=== PATIENT | female | born 1970 | race Caucasian/White ===

== ENCOUNTER 2025-02-04 16:22 | Observation (INO) ==
[2025-02-04 17:02] LABS: Hematocrit (blood only) 43.4 % (37.0-47.0); Hemoglobin 14.5 g/dl (12.0-16.0); Immature Granulocytes # (auto) 0.02 K/uL (0.01-0.20); Immature Granulocytes % (auto) 0.2 %; Mean Corpuscular Hemoglobin 28.1 pg (25.0-34.0); Mean Corpuscular Volume 84.1 fL (80.0-100.0); Platelet Count 292 K/uL (130-400); RDW Standard Deviation 38.9 fL (36.4-46.3); Red Blood Count 5.16 M/uL (4.20-5.40); White Blood Count 8.33 K/ul (4.8-10.8)
[2025-02-04 17:16] LABS: Alanine Aminotransferase 16 U/L (7-52); Albumin Globulin Ratio 1.1 (0.9-2); Albumin Level 4.0 gm/dl (3.4-5.0); Alkaline Phosphatase 99 U/L (34-104); Anion Gap 9 (3-11); Bilirubin,Total 1.2 mg/dl (0.2-1.0); Blood Urea Nitrogen 12 mg/dl (6-23); Calcium 9.6 mg/dl (8.6-10.3); Carbon Dioxide 28 mmol/L (21-32); Chloride 98 mmol/L (98-107); Globulin 3.6 gm/dl (2.5-4.0); Glucose 172 mg/dl (70-99(Fasting)); Potassium 4.0 mmol/L (3.5-5.1); Sodium 135 mmol/L (136-145); Total Protein 7.6 gm/dl (6.0-8.3)
--- NOTE | 2025-02-04 17:18 | XRay Report ---
Clinical History: Chest pain Technique: A frontal view of the chest was obtained Findings: There are no confluent pulmonary infiltrates. The heart size is at the upper limit of normal. No pleural effusion or pneumothorax is seen. There is no definite pulmonary nodule. No fracture is noted. There is thoracic degenerative disc disease Impression: No active disease Electronically signed by Neri Rodriguez 02-04-2025 5:18 PM
--- NOTE | 2025-02-04 17:44 | Ultrasound Report ---
Clinical History: Pain Technique: Venous ultrasound evaluation was performed utilizing grayscale, color Doppler and wave form evaluation. Images were also obtained with and without compression Findings: The left common femoral, superficial femoral, popliteal, and visualized calf veins demonstrate normal anechoic lumens with full compressibility. Normal flow is seen on color Doppler images. Expected waveforms were produced with augmentation maneuvers Impression: No evidence of left leg deep venous thrombosis Electronically signed by Neri Rodriguez 02-04-2025 5:43 PM
[2025-02-04 17:51] LABS: INR 1.0 (0.9-1.1); Partial Thromboplastin Time 24 Seconds (21-31); Prothrombin Time 10.8 Seconds (9.0-12.0)
--- NOTE | 2025-02-04 18:57 | History & Physical Report ---
Date of Service February 04, 2025 Assessment & Plan (1) Chest pain: Plan: Patient with a history of hypothyroidism and type 2 diabetes presents into the ER for L. sided chest discomfort started on Friday (01/31/25) that progressively got worse during the week. She states that it got more intense yesterday into today. She describes the tightness as an "elephant sitting on her chest". She notes the chest discomfort exacerbates when she is exerting herself, though its still there even when resting. Upon physical exam, there was tenderness to palpation where the area of the chest discomfort is, along the lower left sternum. She also reports having palpitations that started on Friday as well. Patient denies any shortness of breath, history of GERD, or any cardiac disease that she knows of. She did have an ECHO done in the past and was told there was nothing remarkable. Due to pain with palpation on her left chest along with normal troponin and D-Dimer, most likely not a cardiac etiology. On heart monitor did show a sinus arrhythmia with PVCs and PACs. Will observe patient tonight. The left leg pain is centered behind her left knee and radiates up toward her left hip. A Venous Doppler study was given to the patient in the ER that came back showing no evidence of left leg deep venous thrombosis. Patient reports that she has had paraesthesia in both of her hands for the past couple of months. Would feel paraesthesia in the morning then go away. However the past 3 weeks have been almost constant. Has had paresthesia all day yesterday and today. Could be from diabetic neuropathy due to history of T2DM. -Imaging: * CXR (02/04/25)- No active disease. Did find thoracic degenerative disc disease. * Venous Doppler (02/04/25)- No evidence of left leg deep venous thrombosis * ECG- Normal Sinus Rhythm with no ST changes. HOWEVER, on patient monitor showed some PACs and PVCs showing sinus arrhythmia. -Labs: * Troponin I: 5.2; D-Dimer: 360 * Total Bilirubin: 1.2; Glucose: 172 -Ordered echo to see if any new cardiac changes. -Ordered STAT troponin I then will collect troponin at Q6H and Q12H to monitor levels. -L. leg on physical exam did not show more swelling compared to R. leg. No calf tenderness in legs B/L (pain was centered behind the L. knee), and negative Venous Doppler makes it highly unlikely patient has a DVT. Continue to monitor for worsening signs. -Paraesthesia on both her palms could be due to diabetic neuropathy. Continue to monitor. -Due to patient's chief complaint, and PVCs and PACs on monitor, will keep patient on telemetry. -Continue home medication of atorvastatin, buspirone, citalopram, glipizide, lisinopril, and levothyroxine. -Ordered insulin in the hospital. -CMP and CBC w/ diff labs in the AM Code Status: Full Code (2) Paresthesia of both hands: (3) Left leg pain: (4) Palpitations: (5) Jaw pain: (6) Diabetes: (7) HLD (hyperlipidemia): (8) HTN (hypertension): (9) Hypothyroidism: Plan Patient seen and examined, chart reviewed, case discussed with Dr. Amos and I agree with the assessment and plan as above. In brief, patient is a 54yo female with history of DM, HTN and hypothyroidism presenting with chest pain as well as LLE pain. Patient also endorses palpitations. Her chest pain has been ongoing. Patient is employed at [employer] and reports that she does a lot of lifting but does not endorse anything in particular that was out of the ordinary. She does have some ectopy noted on telemetry which could correspond with her palpitations. On exam patient is afebrile, HD stable Skin - no rash HEENT - MMM, Neck supple Heart - +S1/S2, regular with ectopy, some reproducible chest wall pain Lungs - CTA anteriorly, no rales/rhonchi/wheezes Abd - soft, NT/ND Ext - no edema Labs and images reviewed Troponin 5.2 --> 5 Tbili=1.2 Assessment/Plan #Chest pain - do not suspect cardiac etiology, more likely musculskeletal. Patient with HEART score of 3 (age, >3 risk factors) -Telemetry monitoring -Trend troponin -Check 2D echo #LLE pain - etiology unclear - unremarkable exam, doppler negative for acute DVT -Monitor for now #Diabetes -Will hold Glipizide -Lants 7u BID and ISS -Possible neuropathy with paresthesias on hands - consider initiation of Lyrica #Hyperlipidemia -Continue home Atorvastatin History of Present Illness Chief Complaint: Chest tightness, L. leg pain, Paresthesia in hands Primary Care Provider: NO PCP Patient with history of hypothyroidism and type 2 diabetes, presents into the hospital for chest tightness, left leg pain, tingling sensation in her hands, and jaw pain. Chest Tightness Reports that she has had L. sided chest discomfort started on Friday (01/31/25) that progressively got worse during the week. She states that it got more intense yesterday into today. She describes the tightness as an "elephant sitting on her chest". Patient states the tightness/discomfort has stayed the same and hasn't gotten better. She notes the chest discomfort exacerbates when she is exerting herself, though its still there even when resting. Upon physical exam, there was tenderness to palpation where the area of the chest discomfort is, along the lower left sternum. Patient denies any shortness of breath, history of GERD, or any cardiac disease that she knows of. She did have an ECHO done in the past and was told there was nothing remarkable. Though her daughter in the room mentioned that it wasn't a "normal" reading. Patient could not recall what specifically was found. Patient also reports having palpitations that began on Friday. Paraesthesia in Hands Patient reports that she has had paraesthesia in both of her hands. She states that the "tingling" sensation has happened for a couple of months but for the last 3 weeks has become more constant. The tingling sensation has been constant all day yesterday and today. She did note that she also fractured her L. ring finger back in June. L. Leg Pain States that she has had left leg pain for over a week. The pain starts in her inner knee then travels up to her left hip. Patient says the pain has stayed the same. Jaw Pain Describes that she feels a "warm sensation" around her lower jaw that started the other day. This sensation lasts for a couple of seconds and are infrequent. Patient denies fever, V/D. Patient states she has some nausea, a poor appetite today, and mild LUQ abdominal pain. Allergies Allergy/AdvReac Type Severity Reaction Status Date / Time No Known Allergies Allergy Unverified 02/04/25 18:16 Home Medications Medication Instructions Recorded Confirmed Type atorvastatin 40 mg tablet 40 mg PO DAILY 02/04/25 02/04/25 History buspirone 10 mg tablet 10 mg PO BID 02/04/25 02/04/25 History citalopram 40 mg tablet 40 mg PO DAILY 02/04/25 02/04/25 History glipizide 5 mg tablet, extended 5 mg PO DAILY 02/04/25 02/04/25 History release 24 hr insulin glargine 100 unit/mL 13 unit subcut HS 02/04/25 02/04/25 History subcutaneous solution (Lantus U-100 Insulin) levothyroxine 200 mcg tablet 200 mcg PO DAILY 02/04/25 02/04/25 History lisinopril 5 mg tablet 5 mg PO DAILY 02/04/25 02/04/25 History Past Med/Surg History Problem List Jaw pain Palpitations Left leg pain Paresthesia of both hands Chest pain (Acute) Medical History Hypothyroidism HLD (hyperlipidemia) HTN (hypertension) Diabetes Social History Smoking Status: Never smoker Preferred Language: French Feels Safe at Home: Yes Review of Systems Review of Systems: As per Subjective HPI Physical Exam Constitutional: well developed and + morbidly obese Eyes: + anicteric sclerae and EOM intact bilat erally Neck: trachea midline and + thick neck; no tracheal deviation and neck nontender Thyroid: normal thyroid Respiratory: normal respiratory effort, lungs clear to auscultation Cardiovascular: Rate/Rhythm: regular rate Heart Sounds: normal S1 and normal S2 Extremities: + edema (trace-1+ B/L); no calf tenderness Gastrointestinal (Abdomen): Percussion/Palpation: + abdomen tender (mild tenderness in LUQ) and abdomen soft Musculoskeletal: Head/Neck/Chest: + chest tenderness (on palpation on L. rib 4-5 and left lower sternum) Skin: no rashes, warm and dry Neurologic: Motor/Sensory: + sensory deficit (in palms B/L) Psychiatric: Orientation: alert Eye Contact: good eye contact Speech: normal rate/rhythm/volume of speech Thought Process: linear/logical thought process and clear/coherent thought process Results & Data Results & Data Vital Signs (Past 12 Hours) Vital Signs Temp Pulse Resp BP Pulse Ox O2 Del Method 02/04/25 18:04 78 02/04/25 16:27 36.6 C 80 20 145/81 H 97 Room Air Laboratory Results Lab Results 02/04/25 Range/Units 16:42 WBC 8.33 (4.8-10.8) K/ul RBC 5.16 (4.20-5.40) M/uL Hgb 14.5 (12.0-16.0) g/dl Hct 43.4 (37.0-47.0) % MCV 84.1 (80.0-100.0) fL MCH 28.1 (25.0-34.0) pg MCHC 33.4 (32.0-36.0) g/dL RDW Std Deviation 38.9 (36.4-46.3) fL RDW Coeff of Ita 12.7 (11.5-14.5) % Plt Count 292 (130-400) K/uL MPV 9.9 (9.4-12.4) fL Immature Gran % (Auto) 0.2 % Neut % (Auto) 50.0 % Lymph % (Auto) 44.3 % [place] % (Auto) 4.1 % Eos % (Auto) 1.0 % Baso % (Auto) 0.4 % Neut # (Auto) 4.17 (1.40-6.50) K/uL Lymph # (Auto) 3.69 H (1.20-3.40) K/uL [place] # (Auto) 0.34 (0.11-0.59) K/uL Eos # (Auto) 0.08 (0.00-0.50) K/uL Baso # (Auto) 0.03 (0.00-0.20) K/uL Immature Gran # (Auto) 0.02 (0.01-0.20) K/uL PT 10.8 (9.0-12.0) Seconds INR 1.0 (0.9-1.1) APTT 24 (21-31) Seconds PTT Ratio 0.9 D-Dimer 360 (0-500) ug/L FEU Sodium 135 L (136-145) mmol/L Potassium 4.0 (3.5-5.1) mmol/L Chloride 98 (98-107) mmol/L Carbon Dioxide 28 (21-32) mmol/L Anion Gap 9 (3-11) BUN 12 (6-23) mg/dl Creatinine 0.60 (0.6-1.2) mg/dl Est Cr Clr Drug Dosing Not Reportable eGFR 107.93 BUN/Creatinine Ratio 20.0 (10-20) Glucose 172 H (70-99(Fasting)) mg/dl Calcium 9.6 (8.6-10.3) mg/dl Total Bilirubin 1.2 H (0.2-1.0) mg/dl AST 16 (13-39) U/L ALT 16 (7-52) U/L Alkaline Phosphatase 99 (34-104) U/L Troponin I High Sens 5.2 (0-14) pg/ml Total Protein 7.6 (6.0-8.3) gm/dl Albumin 4.0 (3.4-5.0) gm/dl Globulin 3.6 (2.5-4.0) gm/dl Albumin/Globulin Ratio 1.1 (0.9-2) Diagnostic Findings Chest X-Ray 02/04/25 16:30 Clinical History: Chest pain Technique: A frontal view of the chest was obtained Findings: There are no confluent pulmonary infiltrates. The heart size is at the upper limit of normal. No pleural effusion or pneumothorax is seen. There is no definite pulmonary nodule. No fracture is noted. There is thoracic degenerative disc disease Impression: No active disease Electronically signed by Neri Rodriguez 02-04-2025 5:18 PM Venous Doppler Study 02/04/25 17:20 Clinical History: Pain Technique: Venous ultrasound evaluation was performed utilizing grayscale, color Doppler and wave form evaluation. Images were also obtained with and without compression Findings: The left common femoral, superficial femoral, popliteal, and visualized calf veins demonstrate normal anechoic lumens with full compressibility. Normal flow is seen on color Doppler images. Expected waveforms were produced with augmentation maneuvers Impression: No evidence of left leg deep venous thrombosis Electronically signed by Neri Rodriguez 02-04-2025 5:43 PM ECG Additional Comments: EKG per my assessment with NSR, no acute ischemic changes Review of telemetry with sinus rhythm, sinus arrhythmia, occasional PAC and PVC Resident Activity Tracking Resident Involvement: Resident Care Provided Care Provided: Adult Hospital Medicine (1) Chest pain Chest pain type: unspecified Qualified Code(s): R07.9 - Chest pain, unspecified
--- NOTE | 2025-02-04 20:08 | Emergency Department Note ---
History of Present Illness General Chief Complaint: Cardiac Assessment Stated Complaint: CHEST DISCOMFORT, PAIN IN LT LEG, HANDS TINGLING Time Seen by Provider: 02/04/25 16:43 History of Present Illness Provider Complaint: chest pain Onset (ago): day(s) 2 Duration: intermittent Onset: during rest Pain Location: substernal and left chest Pain Radiation: neck (L) Severity: moderate Maximum Pain Intensity: 5 Current Pain Intensity: 0 Quality: + heaviness (Pressure) Relieved By: + nothing Exacerbated By: + nothing Context: no recent illness, no recent surgery, no recent travel or no history of DVT/PE Associated symptoms: + dyspnea, + palpitations and + leg swelling (Left calf pain); no nausea, no syncope or no cough Home Medications Medication Instructions Recorded Confirmed Type atorvastatin 40 mg tablet 40 mg PO DAILY 02/04/25 02/04/25 History buspirone 10 mg tablet 10 mg PO BID 02/04/25 02/04/25 History citalopram 40 mg tablet 40 mg PO DAILY 02/04/25 02/04/25 History glipizide 5 mg tablet, extended 5 mg PO DAILY 02/04/25 02/04/25 History release 24 hr insulin glargine 100 unit/mL 13 unit subcut HS 02/04/25 02/04/25 History subcutaneous solution (Lantus U-100 Insulin) levothyroxine 200 mcg tablet 200 mcg PO DAILY 02/04/25 02/04/25 History lisinopril 5 mg tablet 5 mg PO DAILY 02/04/25 02/04/25 History Allergies Allergy/AdvReac Type Severity Reaction Status Date / Time No Known Allergies Allergy Unverified 02/04/25 18:16 Past Med/Surg History Problem List (Updated 02/04/25 @ 20:08 by Rodrigue Dominguez MD) Chest pain (Acute) Medical History (Updated 02/04/25 @ 20:08 by Rodrigue Dominguez MD) HLD (hyperlipidemia) HTN (hypertension) Diabetes Social History Smoking Status: Never smoker Preferred Language: [place] Feels Safe at Home: Yes Physical Exam Vital Signs Vital Signs - 24 hr 02/04/25 16:27 02/04/25 18:04 02/04/25 19:15 Temperature 36.6 C Temperature Source Temporal Artery Scan Pulse Rate 80 78 Pulse Rate [Apical] 78 Respiratory Rate 20 18 Respiratory Effort / Characteristics Non-Labored Respiratory Depth Normal Blood Pressure 145/81 H Blood Pressure [Left Arm] 136/76 Blood Pressure Mean 102 Blood Pressure Mean [Left Arm] 96 Pulse Oximetry 97 97 Oxygen Delivery Method Room Air Room Air Sepsis Recent Fever Within 48 Hours No Sepsis New/Unexplained Change in Mental Status Yes Sepsis Action Taken by Nursing No Action Required Physical Exam GENERAL: oriented to person, place, and time. appears well-developed and well- nourished. HENT: Exam performed. - Head: Normocephalic and atraumatic. EYES: Conjunctivae and EOM are normal. Right eye exhibits no discharge. Left eye exhibits no discharge. No scleral icterus. NECK: Normal range of motion. Neck supple. No JVD present. CV: Normal rate, regular rhythm, normal heart sounds and intact distal pulses. There is no peripheral edema. Palpable radial pulses bue. PULM/CHEST: Effort normal and breath sounds normal. No respiratory distress. No stridor. no wheezes. no rales. ABD: The abdomen is soft. Obese. There is no tenderness. NEURO: Motor and sensation grossly intact. SKIN: Skin is warm and dry. He is not diaphoretic. PSYCH: normal mood and affect. Behavior is normal. Judgment and thought content normal. Course Course 1643: The patient was evaluated in room C5. A complete history and physical exam was performed Cardiac monitoring: An order was placed for continuous cardiac monitoring. The monitor shows a rate of 80 with sinus rhythm interpreted by me 1820: Vital signs stable. Labs and imaging are unremarkable including negative D-dimer high sensitive troponin EKG and chest x-ray. Discussed with the patient about outpatient follow-up versus inpatient observation and cardiology evaluation. Patient elects for the latter. Patient will be admitted for chest pain rule out ACS to the [facility] team. Medical Decision Making Laboratory Data Attestation: I reviewed the patient's lab results. 02/04/25 16:42 02/04/25 16:42 Labs: Lab Results 02/04/25 Range/Units 16:42 WBC 8.33 (4.8-10.8) K/ul RBC 5.16 (4.20-5.40) M/uL Hgb 14.5 (12.0-16.0) g/dl Hct 43.4 (37.0-47.0) % MCV 84.1 (80.0-100.0) fL MCH 28.1 (25.0-34.0) pg MCHC 33.4 (32.0-36.0) g/dL RDW Std Deviation 38.9 (36.4-46.3) fL RDW Coeff of Ita 12.7 (11.5-14.5) % Plt Count 292 (130-400) K/uL MPV 9.9 (9.4-12.4) fL Immature Gran % (Auto) 0.2 % Neut % (Auto) 50.0 % Lymph % (Auto) 44.3 % [place] % (Auto) 4.1 % Eos % (Auto) 1.0 % Baso % (Auto) 0.4 % Neut # (Auto) 4.17 (1.40-6.50) K/uL Lymph # (Auto) 3.69 H (1.20-3.40) K/uL [place] # (Auto) 0.34 (0.11-0.59) K/uL Eos # (Auto) 0.08 (0.00-0.50) K/uL Baso # (Auto) 0.03 (0.00-0.20) K/uL Immature Gran # (Auto) 0.02 (0.01-0.20) K/uL PT 10.8 (9.0-12.0) Seconds INR 1.0 (0.9-1.1) APTT 24 (21-31) Seconds PTT Ratio 0.9 D-Dimer 360 (0-500) ug/L FEU Sodium 135 L (136-145) mmol/L Potassium 4.0 (3.5-5.1) mmol/L Chloride 98 (98-107) mmol/L Carbon Dioxide 28 (21-32) mmol/L Anion Gap 9 (3-11) BUN 12 (6-23) mg/dl Creatinine 0.60 (0.6-1.2) mg/dl Est Cr Clr Drug Dosing Not Reportable eGFR 107.93 BUN/Creatinine Ratio 20.0 (10-20) Glucose 172 H (70-99(Fasting)) mg/dl Calcium 9.6 (8.6-10.3) mg/dl Total Bilirubin 1.2 H (0.2-1.0) mg/dl AST 16 (13-39) U/L ALT 16 (7-52) U/L Alkaline Phosphatase 99 (34-104) U/L Troponin I High Sens 5.2 (0-14) pg/ml Total Protein 7.6 (6.0-8.3) gm/dl Albumin 4.0 (3.4-5.0) gm/dl Globulin 3.6 (2.5-4.0) gm/dl Albumin/Globulin Ratio 1.1 (0.9-2) Imaging Data Chest x-ray: Attestation: I personally reviewed and interpreted this imaging study as follows: My impression: Chest x-ray negative. Airway clear. No pneumothorax. No consolidation. No cardiomegaly or cephalization.. No free air under the diaphragm. No fractures of the skeletal structures. Radiologist's impression: Chest X-Ray 02/04/25 16:30 Clinical History: Chest pain Technique: A frontal view of the chest was obtained Findings: There are no confluent pulmonary infiltrates. The heart size is at the upper limit of normal. No pleural effusion or pneumothorax is seen. There is no definite pulmonary nodule. No fracture is noted. There is thoracic degenerative disc disease Impression: No active disease Electronically signed by Neri Rodriguez 02-04-2025 5:18 PM Venous Doppler Study 02/04/25 17:20 Clinical History: Pain Technique: Venous ultrasound evaluation was performed utilizing grayscale, color Doppler and wave form evaluation. Images were also obtained with and without compression Findings: The left common femoral, superficial femoral, popliteal, and visualized calf veins demonstrate normal anechoic lumens with full compressibility. Normal flow is seen on color Doppler images. Expected waveforms were produced with augmentation maneuvers Impression: No evidence of left leg deep venous thrombosis Electronically signed by Neri Rodriguez 02-04-2025 5:43 PM ECG Data Attestation: I personally reviewed and interpreted this ECG as follows: Indication: chest pain Rate (beats per minute): 81 Rhythm: normal sinus Findings: no ST depression, no ST elevation or no prolonged QT Additional Comments: QRS 78 MDM Narrative 1643: The patient was evaluated in room C5. A complete history and physical exam was performed Cardiac monitoring: An order was placed for continuous cardiac monitoring. The monitor shows a rate of 80 with sinus rhythm interpreted by me 1820: Vital signs stable. Labs and imaging are unremarkable including negative D-dimer high sensitive troponin EKG and chest x-ray. Discussed with the patient about outpatient follow-up versus inpatient observation and cardiology evaluation. Patient elects for the latter. Patient will be admitted for chest pain rule out ACS to the [facility] team. Impression & Plan Chest pain Discharge Plan Visit Data Chief Complaint: Cardiac Assessment Stated Complaint: CHEST DISCOMFORT, PAIN IN LT LEG, HANDS TINGLING ED Provider: Rodrigue Dominguez Discharge Problem: Chest pain Patient Disposition: Admitted As Inpatient Condition: Fair Forms Stand Alone Forms: My [facility] Prescriptions Prescriptions: No Action atorvastatin 40 mg Tablet 40 mg PO DAILY insulin glargine [Lantus U-100 Insulin] 100 unit/mL solution 13 unit SUBCUT HS citalopram 40 mg tablet 40 mg PO DAILY glipizide 5 mg tablet extended release 24hr 5 mg PO DAILY buspirone 10 mg tablet 10 mg PO BID levothyroxine 200 mcg tablet 200 mcg PO DAILY lisinopril 5 mg Tablet 5 mg PO DAILY Referrals Referrals: PCP,NO [Primary Care Provider] - Discharge Problem: Chest pain Qualifiers: Chest pain type: unspecified Qualified Code(s): R07.9 - Chest pain, unspecified
--- NOTE | 2025-02-04 22:06 | Billing Data ---
Date of Service February 04, 2025 Coding Level of Care Code 56298 INT INP/OBS CARE
[2025-02-04] MEDS ORDERED: MELATONIN 3 MG TAB PO PRN (22:13)
[2025-02-04] MEDS ORDERED: POLYETHYLENE (MIRALAX) 17 GM PACK PO PRN (22:13)
[2025-02-04] MEDS ORDERED: GLUCOSE 10 TAB/TUBE PO PRN (22:13)
[2025-02-04] MEDS ORDERED: GLUCAGON FOR INJ 1 MG VIAL SQ PRN (22:13)
[2025-02-04] MEDS ORDERED: CARBOHYDRATES FOR HYPOGLYCEMIA PO PRN (22:13)
[2025-02-04] MEDS ORDERED: DEXTROSE 50% 50 ML SYRINGE IV PRN (22:13)
[2025-02-04] MEDS ORDERED: ONDANSETRON 4 MG OD TAB PO PRN (22:13)
[2025-02-04] MEDS ORDERED: GLUCOSE 40% GEL 15 GM TUBE PO PRN (22:13)
[2025-02-04 22:17] LABS: Magnesium 1.8 mg/dl (1.7-2.4)
[2025-02-04] MEDS: LANTUS PER UNIT CHARGE SQ SCH (23:04)
[2025-02-04] MEDS: INSULIN ASPART PER UNIT CHARGE SC SCH (23:05)
[2025-02-04] MEDS: busPIRone 5 MG TAB PO SCH (23:05)
[2025-02-04] MEDS: ATORVASTATIN 40 MG TAB PO SCH (23:05)
[2025-02-05] MEDS: LEVOTHYROXINE SODIUM 200 MCG TABLET PO SCH (05:35)
[2025-02-05] MEDS: CITALOPRAM 40 MG TAB PO SCH (08:18)
[2025-02-05 08:33] LABS: Hematocrit (blood only) 44.3 % (37.0-47.0); Hemoglobin 14.5 g/dl (12.0-16.0); Mean Corpuscular Hemoglobin 27.8 pg (25.0-34.0); Mean Corpuscular Volume 85.0 fL (80.0-100.0); Platelet Count 274 K/uL (130-400); RDW Standard Deviation 40.0 fL (36.4-46.3); Red Blood Count 5.21 M/uL (4.20-5.40); White Blood Count 7.13 K/ul (4.8-10.8)
[2025-02-05 08:54] LABS: Alanine Aminotransferase 15.0 U/L (7-52); Albumin Globulin Ratio 1.1 (0.9-2); Albumin Level 3.6 gm/dl (3.4-5.0); Alkaline Phosphatase 86.0 U/L (34-104); Anion Gap 7.0 (3-11); Bilirubin,Total 1.5 mg/dl (0.2-1.0); Blood Urea Nitrogen 9.0 mg/dl (6-23); Calcium 9.2 mg/dl (8.6-10.3); Carbon Dioxide 31.0 mmol/L (21-32); Chloride 100.0 mmol/L (98-107); Creatinine Clr Calc Pharmacy 159.6 ml/min; Globulin 3.4 gm/dl (2.5-4.0); Glucose 164.0 mg/dl (70-99(Fasting)); Potassium 4.2 mmol/L (3.5-5.1); Sodium 138.0 mmol/L (136-145); Total Protein 7.0 gm/dl (6.0-8.3)
[2025-02-05 09:43] LABS: Immature Granulocytes # (auto) 0.01 K/uL (0.01-0.20); Immature Granulocytes % (auto) 0.1 %
--- NOTE | 2025-02-05 17:20 | XCELERA ---
[id number] \\[id number]
--- NOTE | 2025-02-05 18:17 | Hospitalist Progress Note ---
Date of Service February 05, 2025 Assessment & Plan (1) Chest pain: Plan: Patient with a history of hypothyroidism and type 2 diabetes presents into the ER for L. sided chest discomfort started on Friday (01/31/25) that progressively got worse during the week. She describes the tightness as an "elephant sitting on her chest". She notes the chest discomfort exacerbates when she is exerting herself, though its still there even when resting. Upon physical exam, there was tenderness to palpation where the area of the chest discomfort is, along the lower left sternum. Improved this AM but still present. L chest wall said to be tender yesterday, not tender today. EKGs normal and troponins have been normal. D-dimer and LE duplex normal, no hypoxia or tachycardia, PE unlikely. Echo - normal LVEF, mild conc LVH, no significant valvular problems visible. Technically difficult/limited study. I discussed plan going forward with her. Could be MSK, but doesn't explain the exertional component well and she has multiple risk factors for CAD. May need expedited stress test. Her PCP is in [place] and she lives in [place] (recently moved), but works near here - not established with [facility] [place], logistics are challenging. Will consult with cardiology in AM, rarely DSE can be done on weekend, or expedited as outpatient. HTN, HLD -Continue home medication of atorvastatin, lisinopril DM type 2 -Ordered insulin in the hospital. BG at goal -home med: glipizide Continue other home meds Code Status: Full Code (2) Paresthesia of both hands: (3) Left leg pain: (4) Palpitations: (5) Jaw pain: (6) Diabetes: (7) HLD (hyperlipidemia): (8) HTN (hypertension): (9) Hypothyroidism: Plan Patient seen and examined, chart reviewed, case discussed with Dr. Amos and I agree with the assessment and plan as above. In brief, patient is a 54yo female with history of DM, HTN and hypothyroidism presenting with chest pain as well as LLE pain. Patient also endorses palpitations. Her chest pain has been ongoing. Patient is employed at [employer] and reports that she does a lot of lifting but does not endorse anything in particular that was out of the ordinary. She does have some ectopy noted on telemetry which could correspond with her palpitations. On exam patient is afebrile, HD stable Skin - no rash HEENT - MMM, Neck supple Heart - +S1/S2, regular with ectopy, some reproducible chest wall pain Lungs - CTA anteriorly, no rales/rhonchi/wheezes Abd - soft, NT/ND Ext - no edema Labs and images reviewed Troponin 5.2 --> 5 Tbili=1.2 Assessment/Plan #Chest pain - do not suspect cardiac etiology, more likely musculskeletal. Patient with HEART score of 3 (age, >3 risk factors) -Telemetry monitoring -Trend troponin -Check 2D echo #LLE pain - etiology unclear - unremarkable exam, doppler negative for acute DVT -Monitor for now #Diabetes -Will hold Glipizide -Lants 7u BID and ISS -Possible neuropathy with paresthesias on hands - consider initiation of Lyrica #Hyperlipidemia -Continue home Atorvastatin Admission and Anticipated Discharge Date Admission Date: February 04, 2025 Subjective chest pressure, left sided, still present this morning but improved compared to yesterday is having a lot of fatigue, has had some palpitations with pac's pvc's on monitor no dyspnea at rest no hx VTE L anterior thigh pain has been present several weeks bilateral UE dysesthesia started recently. is relieved by holding arms above her head no neck or shoulders pain Physical Exam 2 Physical Exam: Last 24h vitals reviewed GEN: no acute distress, sitting in bed HEENT: pupils equal, sclerae anicteric, moist MM RESP: normal WOB, CTAB CV: reg no mrg. distant ABD: soft/nt/nd +BT : no vogel SKIN: warm and dry, no generalized rashes NEURO: AOx person, place, and situation. Face symmetric, speech normal, moves 4 ext spontaneously and equally sensation intact to LT bilateral UE and hands. Senior Catering Sales Manager strength 5/5 Results & Data Results & Data Vital Signs (Past 12 Hours) Vital Signs Temp Pulse Pulse Resp BP Pulse Ox O2 Del Method 02/05/25 16:26 37.0 C 75 16 122/86 93 Room Air 02/05/25 14:23 86 02/05/25 08:29 36.7 C 86 20 141/76 H 95 Room Air 02/05/25 07:25 79 Laboratory Results 02/05/25 08:11 02/05/25 08:11 troponins all <6 D-dimer negative LE duplex negative for DVT bili 1.2-->1.5 tele - pac's pvc's PG Care Time/CCT Total # of Minutes Spent Total Time Spent with Patient: Total time spent is greater than 50% in coordination of care (as documented) at patient's floor/unit and/or counseling patient: Coding Level of Care Code 13666 SUB INP/OBS CARE 3/50MIN Diagnoses Chest pain R07.9 Chest pain type: unspecified Paresthesia of both hands R20.2 Left leg pain M79.605 Palpitations R00.2 Jaw pain R68.84 Diabetes E11.9 HLD (hyperlipidemia) E78.5 HTN (hypertension) I10 Hypothyroidism E03.9 (1) Chest pain Chest pain type: unspecified Qualified Code(s): R07.9 - Chest pain, unspecified
[2025-02-06 06:50] LABS: Hematocrit (blood only) 43.0 % (37.0-47.0); Hemoglobin 14.6 g/dl (12.0-16.0); Mean Corpuscular Hemoglobin 29.0 pg (25.0-34.0); Mean Corpuscular Volume 85.5 fL (80.0-100.0); Platelet Count 273 K/uL (130-400); RDW Standard Deviation 39.5 fL (36.4-46.3); Red Blood Count 5.03 M/uL (4.20-5.40); White Blood Count 7.48 K/ul (4.8-10.8)
[2025-02-06 07:15] LABS: Alanine Aminotransferase 15.0 U/L (7-52); Albumin Globulin Ratio 1.1 (0.9-2); Albumin Level 3.5 gm/dl (3.4-5.0); Alkaline Phosphatase 83.0 U/L (34-104); Anion Gap 5.0 (3-11); Bilirubin,Total 1.2 mg/dl (0.2-1.0); Blood Urea Nitrogen 12.0 mg/dl (6-23); Calcium 9.0 mg/dl (8.6-10.3); Carbon Dioxide 32.0 mmol/L (21-32); Chloride 101.0 mmol/L (98-107); Creatinine Clr Calc Pharmacy 141.3 ml/min; Globulin 3.2 gm/dl (2.5-4.0); Glucose 161.0 mg/dl (70-99(Fasting)); Potassium 4.0 mmol/L (3.5-5.1); Sodium 138.0 mmol/L (136-145); Total Protein 6.7 gm/dl (6.0-8.3)
[2025-02-06 07:56] LABS: Immature Granulocytes # (auto) 0.02 K/uL (0.01-0.20); Immature Granulocytes % (auto) 0.3 %
[2025-02-06] MEDS: ACETAMINOPHEN 325 MG TAB PO PRN (08:04)
[2025-02-06] MEDS: GABAPENTIN 100 MG CAP PO SCH (12:41)
--- NOTE | 2025-02-06 15:51 | Hospitalist Progress Note ---
Date of Service February 06, 2025 Assessment & Plan (1) Chest pain: Plan: Patient with a history of hypothyroidism and type 2 diabetes presents into the ER for L. sided chest discomfort started on Friday (01/31/25) that progressively got worse during the week. She describes the tightness as an "elephant sitting on her chest". She notes the chest discomfort exacerbates when she is exerting herself, though its still there even when resting. Upon physical exam, there was tenderness to palpation where the area of the chest discomfort is, along the lower left sternum. chest pressure improved but still present. malaise/fatigue. EKGs normal and troponins have been normal. D-dimer and LE duplex normal, no hypoxia or tachycardia, PE unlikely. Echo - normal LVEF, mild conc LVH, no significant valvular problems visible. Technically difficult/limited study. Could be MSK, but doesn't explain the exertional component well and she has multiple risk factors for CAD. Her PCP is in [place] and she lives in [place] (recently moved), but works near here - [place] [facility] [place]. Discussed with cardiology. Ordered dobutamine stress echo for tomorrow morning. HTN, HLD -Continue home medication of atorvastatin, lisinopril DM type 2 -Ordered insulin in the hospital. BG at goal -home med: glipizide morbid obesity with BMI of 47 Continue other home meds DVT prophylaxis: Enoxaparin Code Status: Full Code (2) Paresthesia of both hands: (3) Left leg pain: (4) Palpitations: (5) Jaw pain: (6) Diabetes: (7) HLD (hyperlipidemia): (8) HTN (hypertension): (9) Hypothyroidism: Plan Patient seen and examined, chart reviewed, case discussed with Dr. Amos and I agree with the assessment and plan as above. In brief, patient is a 54yo female with history of DM, HTN and hypothyroidism presenting with chest pain as well as LLE pain. Patient also endorses palpitations. Her chest pain has been ongoing. Patient is employed at [employer] and reports that she does a lot of lifting but does not endorse anything in particular that was out of the ordinary. She does have some ectopy noted on telemetry which could correspond with her palpitations. On exam patient is afebrile, HD stable Skin - no rash HEENT - MMM, Neck supple Heart - +S1/S2, regular with ectopy, some reproducible chest wall pain Lungs - CTA anteriorly, no rales/rhonchi/wheezes Abd - soft, NT/ND Ext - no edema Labs and images reviewed Troponin 5.2 --> 5 Tbili=1.2 Assessment/Plan #Chest pain - do not suspect cardiac etiology, more likely musculskeletal. Patient with HEART score of 3 (age, >3 risk factors) -Telemetry monitoring -Trend troponin -Check 2D echo #LLE pain - etiology unclear - unremarkable exam, doppler negative for acute DVT -Monitor for now #Diabetes -Will hold Glipizide -Lants 7u BID and ISS -Possible neuropathy with paresthesias on hands - consider initiation of Lyrica #Hyperlipidemia -Continue home Atorvastatin Admission and Anticipated Discharge Date Admission Date: February 04, 2025 Subjective Continues to have fatigue, does not feel great and some left-sided chest pressure no shortness of breath at rest has not really been up and around much continues to have bilateral hand and forearm tingling, left anterior thigh pain. Pain at the back of the knee has resolved Physical Exam Physical Exam: Last 24h vitals reviewed GEN: no acute distress, sitting in bed exam unchanged 02/06 HEENT: pupils equal, sclerae anicteric, moist MM RESP: normal WOB, CTAB CV: reg no mrg. distant ABD: soft/nt/nd +BT : no vogel SKIN: warm and dry, no generalized rashes NEURO: AOx person, place, and situation. Face symmetric, speech normal, moves 4 ext spontaneously and equally sensation intact to LT bilateral UE and hands. Drawer Maker strength 5/5 Results & Data Results & Data Vital Signs (Past 12 Hours) Vital Signs Temp Pulse Pulse Resp BP Pulse Ox O2 Del Method 02/06/25 14:37 78 02/06/25 11:41 36.4 C L 75 20 121/78 95 Room Air 02/06/25 07:37 36.8 C 75 20 132/78 96 Room Air 02/06/25 07:30 83 PG Care Time/CCT Total # of Minutes Spent Total Time Spent with Patient: Total time spent is greater than 50% in coordination of care (as documented) at patient's floor/unit and/or counseling patient: Coding Level of Care Code 41384 SUB INP/OBS CARE 2/35MIN Diagnoses Chest pain R07.9 Chest pain type: unspecified Paresthesia of both hands R20.2 Left leg pain M79.605 Palpitations R00.2 Jaw pain R68.84 Diabetes E11.9 HLD (hyperlipidemia) E78.5 HTN (hypertension) I10 Hypothyroidism E03.9 (1) Chest pain Chest pain type: unspecified Qualified Code(s): R07.9 - Chest pain, unspecified
[2025-02-06] MEDS: ENOXAPARIN INJ 40 MG/0.4 ML SYR SQ SCH (21:34)
--- NOTE | 2025-02-06 22:59 | Electrocardiogram Report ---
Test Reason : Blood Pressure : */* mmHG Vent. Rate : 81 BPM Atrial Rate : 81 BPM P-R Int : 166 ms QRS Dur : 78 ms QT Int : 372 ms P-R-T Axes : 25 16 14 degrees QTcB Int : 432 ms Normal sinus rhythm Normal ECG No previous ECGs available Confirmed by Jesse Molina ([id number]) on 02/06/2025 10:58:49 PM Referred By: REFERRED SELF Confirmed By: Jesse Molina
[2025-02-07 07:02] LABS: Hematocrit (blood only) 43.8 % (37.0-47.0); Hemoglobin 14.9 g/dl (12.0-16.0); Immature Granulocytes # (auto) 0.02 K/uL (0.01-0.20); Immature Granulocytes % (auto) 0.3 %; Mean Corpuscular Hemoglobin 28.8 pg (25.0-34.0); Mean Corpuscular Volume 84.7 fL (80.0-100.0); Platelet Count 271 K/uL (130-400); RDW Standard Deviation 38.9 fL (36.4-46.3); Red Blood Count 5.17 M/uL (4.20-5.40); White Blood Count 7.53 K/ul (4.8-10.8)
[2025-02-07 07:23] LABS: Alanine Aminotransferase 17.0 U/L (7-52); Albumin Globulin Ratio 1.0 (0.9-2); Albumin Level 3.5 gm/dl (3.4-5.0); Alkaline Phosphatase 83.0 U/L (34-104); Anion Gap 7.0 (3-11); Bilirubin,Total 1.4 mg/dl (0.2-1.0); Blood Urea Nitrogen 11.0 mg/dl (6-23); Calcium 9.0 mg/dl (8.6-10.3); Carbon Dioxide 29.0 mmol/L (21-32); Chloride 101.0 mmol/L (98-107); Creatinine Clr Calc Pharmacy 148.4 ml/min; Globulin 3.6 gm/dl (2.5-4.0); Glucose 150.0 mg/dl (70-99(Fasting)); Potassium 3.8 mmol/L (3.5-5.1); Sodium 137.0 mmol/L (136-145); Total Protein 7.1 gm/dl (6.0-8.3)
[2025-02-07] MEDS: METOPROLOL TARTRATE 1 MG/ML VIAL IV ONE (10:46)
[2025-02-07] MEDS: DOBUTamine HCL 12.5 MG/ML 20 ML VIAL IV ONE (10:46)
[2025-02-07] MEDS: ATROPINE SULFATE 0.1 MG/ML 10ML SYR IV ONE (10:46)
--- NOTE | 2025-02-07 13:15 | XCELERA ---
[id number] \\ISCV-JOSE [id number]_[id number]
[2025-02-07 16:00] VITALS: RESP 16; TEMP 98.6; O2SAT 93
--- NOTE | 2025-02-07 16:46 | Discharge Summary ---
Discharge Summary Date of Service February 07, 2025 Principal Dx & Hospital Course #1 = Principal Diagnosis (1) Chest pain: 54 y/o woman with history of hypothyroidism hypertension and type 2 diabetes presents into the ER for L. sided chest discomfort started on Friday (01/31/25) that progressively got worse during the week. She describes the tightness as an "elephant sitting on her chest". She notes the chest discomfort exacerbates when she is exerting herself, though its still there even when resting. Upon physical exam, there was tenderness to palpation where the area of the chest discomfort is, along the lower left sternum. chest pressure much improved but still present. Fatigue. EKGs normal and troponins have been normal, 5 and less. D-dimer and LE duplex normal, no hypoxia or tachycardia, PE unlikely. Echo - normal LVEF, mild conc LVH, no significant valvular problems visible. Technically difficult/limited study. No evidence of acute coronary syndrome. Multiple risk factors for CAD so moderate risk for MACE in near future. Underwent dobutamine stress echo. Technically didn't get fully to goal but was close, discussed with air dispatcher who protocol the study. No EKG or Echo changes with stress. Low risk study. Pressure may be musculoskeletal. Did not seem GI in character. She had various other symptoms that seemed unrelated: Palpitations - monitored on tele for prolonged time no significant arrhythmias. Early in hospital course / day of admission had some pac's and pvc's which became infrequent, likely the cause of her symptoms. If bothersome in the future could start B-gin or diltiazem. Dysesthesias both hands/forearms, circumferential, new in past few weeks. No neck, shoulder pain or hand/arm weakness. Sensation intact. Also has some chronic diabetic nephropathy in feet. Might be diabetic nephropathy exacerbated by recent significant improvement in blood glucoses after starting glipizide recently. Also seems to improve when raising arms overhead, consider neurogenic thoracic outlet syndrome, no evidence of vascular compromise. Consider neurology referral as outpatient. Left knee pain was present on admission (posterior fossa) but resolved. Left anterior thigh pain - present several weeks. Consistent with meralgia paresthetica. Advice given on preventing too much pressure from pannus on L groin/thigh. Trial of low dose gabapetin started with some improvement in above symptoms at hands/arms and thigh. Follow up in primary care HTN, HLD -Continue home medication of atorvastatin, lisinopril DM type 2 -Ordered insulin in the hospital. BG at goal -home med: glipizide, glargine - A1c was high as outpatient then glipizide recently added with improvement in BG. Follow up with PCP. morbid obesity with BMI of 47 - contributing to meralgia paresthetica and some dyspnea on exertion elevated risk of sleep apnea: hypertension, body habitus, elevated BMI, fatigue - recommend outpatient sleep medicine referral She has PCP in [place] and will follow up with her, she recently moved to [place] but works near [place]. (2) Paresthesia of both hands: (3) Left leg pain: (4) Palpitations: (5) Jaw pain: (6) Diabetes: (7) HLD (hyperlipidemia): (8) HTN (hypertension): (9) Hypothyroidism: Plan Patient seen and examined, chart reviewed, case discussed with Dr. Amos and I agree with the assessment and plan as above. In brief, patient is a 54yo female with history of DM, HTN and hypothyroidism presenting with chest pain as well as LLE pain. Patient also endorses palpitations. Her chest pain has been ongoing. Patient is employed at [employer] and reports that she does a lot of lifting but does not endorse anything in particular that was out of the ordinary. She does have some ectopy noted on telemetry which could correspond with her palpitations. On exam patient is afebrile, HD stable Skin - no rash HEENT - MMM, Neck supple Heart - +S1/S2, regular with ectopy, some reproducible chest wall pain Lungs - CTA anteriorly, no rales/rhonchi/wheezes Abd - soft, NT/ND Ext - no edema Labs and images reviewed Troponin 5.2 --> 5 Tbili=1.2 Assessment/Plan #Chest pain - do not suspect cardiac etiology, more likely musculskeletal. Patient with HEART score of 3 (age, >3 risk factors) -Telemetry monitoring -Trend troponin -Check 2D echo #LLE pain - etiology unclear - unremarkable exam, doppler negative for acute DVT -Monitor for now #Diabetes -Will hold Glipizide -Lants 7u BID and ISS -Possible neuropathy with paresthesias on hands - consider initiation of Lyrica #Hyperlipidemia -Continue home Atorvastatin Admission HPI Per Admitting Provider Patient with history of hypothyroidism and type 2 diabetes, presents into the hospital for chest tightness, left leg pain, tingling sensation in her hands, and jaw pain. Chest Tightness Reports that she has had L. sided chest discomfort started on Friday (01/31/25) that progressively got worse during the week. She states that it got more intense yesterday into today. She describes the tightness as an "elephant sitting on her chest". Patient states the tightness/discomfort has stayed the same and hasn't gotten better. She notes the chest discomfort exacerbates when she is exerting herself, though its still there even when resting. Upon physical exam, there was tenderness to palpation where the area of the chest discomfort is, along the lower left sternum. Patient denies any shortness of breath, history of GERD, or any cardiac disease that she knows of. She did have an ECHO done in the past and was told there was nothing remarkable. Though her daughter in the room mentioned that it wasn't a "normal" reading. Patient could not recall what specifically was found. Patient also reports having palpitations that began on Friday. Paraesthesia in Hands Patient reports that she has had paraesthesia in both of her hands. She states that the "tingling" sensation has happened for a couple of months but for the last 3 weeks has become more constant. The tingling sensation has been constant all day yesterday and today. She did note that she also fractured her L. ring finger back in June. L. Leg Pain States that she has had left leg pain for over a week. The pain starts in her inner knee then travels up to her left hip. Patient says the pain has stayed the same. Jaw Pain Describes that she feels a "warm sensation" around her lower jaw that started the other day. This sensation lasts for a couple of seconds and are infrequent. Patient denies fever, V/D. Patient states she has some nausea, a poor appetite today, and mild LUQ abdominal pain. Discharge Exam Last 24h vitals reviewed GEN: no acute distress, sitting in bed exam unchanged 02/06 HEENT: pupils equal, sclerae anicteric, moist MM RESP: normal WOB, CTAB CV: reg no mrg. distant ABD: soft/nt/nd +BT : no vogel SKIN: warm and dry, no generalized rashes NEURO: AOx person, place, and situation. Face symmetric, speech normal, moves 4 ext spontaneously and equally sensation intact to LT bilateral UE and hands. Oil Rig Roughneck strength 5/5 Discharge Plan Discharge Items Patient Disposition: Home - Self-Care Reason For Visit: CHEST TIGHTNESS, L. LEG PAIN, PARAESTHESIA IN HAND Discharge Diagnosis: atypical chest pressure, diabetic neuropathy, upper extremity paresthesias Condition on Discharge: Good Activity: Resume your previous activity Non-emergency contact: Primary Care Provider Call non-emergency contact if: you have any medication questions and your symptoms worsen Follow-up/Referrals: PCP,NO [Primary Care Provider] - Diet: Carb Consistent or DM2 Addtl Attending Provider Instructions: You were evaluated for chest pressure/pain Heart attack was ruled out and your Echo and Stess Echo look okay The discomfort might be musculoskeletal (chest wall related). Often this is related to irritation of the cartilage that connect the ribs to the sternum. This should improve with time and analgesics. You had some premature heart beats that were causing palpitations. These are benign and nothing to worry about. If they are persisting and bothersome, medication like metoprolol or diltiazem can be tried to see if they make you feel better. I think you have diabetic neuropathy in your feet, and its possible that is what is affecting your hands and arms. Good blood sugar control is the best way to improve this problem - sometimes it gets better as blood sugar comes under control. Sometimes neuropathy symptoms transiently worsen when blood sugars rapidly improve, for example when new medications are started. The left thigh pain is caused by peripheral nerve compression, this condition is called "meralgia paresthetica" and is common with diabetes. The gabapentin may help. Try to use changes in position to keep your belly from compressing your left groin, if possible. This can be aggravated by sitting upright and sometimes by standing. I started a trial of gabapentin, which can help with nerve symptoms. This can cause grogginess, but it usually wears off after you get used to the medicine. You can increase it to 2 caps three times a day in about a week if you are still having bothersome symptoms. Follow up with primary care. If symptoms do not improve you may be referred to a neurologist. It was a pleasure taking care of you in the hospital, Tara Galindo MD Pending Studies at Discharge: No Stand-Alone Forms: My [facility], Work/School Release, Smoking Cessation Medications and DC Order Prescriptions: New gabapentin 100 mg Capsule 100 mg PO TID Qty: 90 0RF Rx Instructions: may increase to 2 caps three times a day in a week if lower dose not effective Continued atorvastatin 40 mg Tablet 40 mg PO DAILY insulin glargine [Lantus U-100 Insulin] 100 unit/mL solution 13 unit SUBCUT HS citalopram 40 mg tablet 40 mg PO DAILY glipizide 5 mg tablet extended release 24hr 5 mg PO DAILY buspirone 10 mg tablet 10 mg PO BID levothyroxine 200 mcg tablet 200 mcg PO DAILY lisinopril 5 mg Tablet 5 mg PO DAILY Discharge Orders: Discharge Order (Routine); Ordered 02/07/25 Ordered By: Tara Galindo Admission Data Admit Date/Time: 02/04/25 19:54 Attending Provider: Tara Galindo Admit Provider: Reynold Amos Primary Care Provider: PCP,NO Other Providers: Eddie Barrera. Other Interventions: Discharge Summary Assessment (RN) Last Done: 02/07/25 16:48 Hospital Stay Data Consultations 02/04/25 18:18 ED Decision to Admit Stat Diagnostic Imagining Performed 02/04/25 17:20 US venous doppler LE LT Stat Pending Results Patient Have Any Pending Studies at Discharge: No Discharge Instructions Given to Patient (Per Discharging Provider) You were evaluated for chest pressure/pain Heart attack was ruled out and your Echo and Stess Echo look okay The discomfort might be musculoskeletal (chest wall related). Often this is related to irritation of the cartilage that connect the ribs to the sternum. This should improve with time and analgesics. You had some premature heart beats that were causing palpitations. These are benign and nothing to worry about. If they are persisting and bothersome, medication like metoprolol or diltiazem can be tried to see if they make you feel better. I think you have diabetic neuropathy in your feet, and its possible that is what is affecting your hands and arms. Good blood sugar control is the best way to improve this problem - sometimes it gets better as blood sugar comes under control. Sometimes neuropathy symptoms transiently worsen when blood sugars rapidly improve, for example when new medications are started. The left thigh pain is caused by peripheral nerve compression, this condition is called "meralgia paresthetica" and is common with diabetes. The gabapentin may help. Try to use changes in position to keep your belly from compressing your left groin, if possible. This can be aggravated by sitting upright and sometimes by standing. I started a trial of gabapentin, which can help with nerve symptoms. This can cause grogginess, but it usually wears off after you get used to the medicine. You can increase it to 2 caps three times a day in about a week if you are still having bothersome symptoms. Follow up with primary care. If symptoms do not improve you may be referred to a neurologist. It was a pleasure taking care of you in the hospital, Tara Galindo MD Total Time Total Time Spent Total Time Spent (In Minutes): <30 Coding Level of Care Code 49591 IN/OBS DISCH 30 MIN/LESS Diagnoses Chest pain R07.9 Chest pain type: unspecified Paresthesia of both hands R20.2 Left leg pain M79.605 Palpitations R00.2 Jaw pain R68.84 Diabetes E11.9 HLD (hyperlipidemia) E78.5 HTN (hypertension) I10 Hypothyroidism E03.9
[2025-02-07 16:49] VITALS: BP 134/69; PULSE 82
== END 2025-02-07 18:25 | disposition home or self-care (01) ==
LOC: ED 16:22 → 2N 16:22 → SUATTDRO 19:54 → 2N 21:30